=== PATIENT | female | born 1985 | race Caucasian/White ===

== ENCOUNTER 2024-08-13 01:51 | Emergency (ER) | payer SELFPAY ==
[~2024-08-13] VITALS: Ht 157.5 cm; Wt 64.7 kg
[~2024-08-13 01:51] MED LIST: ACET125EL PO; HYCE0.1S PO
[2024-08-13 01:54] VITALS: BP 133/84; TEMP 98.4; O2SAT 99
== END 2024-08-13 02:35 | disposition left against medical advice (07) ==
LOC: M ED 01:51
DX: Z53.21 Procedure and treatment not carried out due to patient leaving prior to being seen by health care provider (principal)